=== PATIENT | female | born 1995 | race American Indian/Alaskan Native ===

== ENCOUNTER 2019-11-04 14:40 | Emergency (ER) | payer SELFPAY ==
--- NOTE | 2019-11-04 17:34 | Event Note ---
ED Screening Note ED Screening Note: 24 y/o female presents to ED c/o of cough =, chest pain and hemoptysis with myalgia. The patient was seen in triage for above Labs/imaging ordered to evaluate for a cause of this complaint. Vital signs reviewed, patient awake and alert in NAD. This initial assessment/diagnostic orders/clinical plan/treatment(s) is/are subject to change based on patients health status, clinical progression and re- assessment by fellow clinical providers in the ED. Further treatment and workup at subsequent clinical providers discretion. Patient/guardian urged not to elope from the ED as their condition may be serious if not clinically assessed and managed. Initial orders include:
--- NOTE | 2019-11-04 18:00 | XRay Report ---
CHEST 2 VIEWS INDICATION / CLINICAL INFORMATION: cough and chest pain. COMPARISON: None available. FINDINGS: SUPPORT DEVICES: None. HEART / MEDIASTINUM: No significant abnormality. LUNGS / PLEURA: No significant pulmonary or pleural abnormality. No pneumothorax. ADDITIONAL FINDINGS: No significant additional findings. IMPRESSION: 1. No acute findings. Signer Name: Willard Lowery MD Signed: 11/04/2019 5:56 PM Workstation Name: [id number]
[2019-11-04] MEDS ORDERED: predniSONE 50 MG TAB PO ONE (19:50)
[2019-11-04] MEDS ORDERED: ACETAMINOPHEN 500 MG TAB PO ONE (19:51)
--- NOTE | 2019-11-04 19:56 | Emergency Department Report ---
- General Chief Complaint: Upper Respiratory Infection Stated Complaint: FLU SYM/CHEST PAIN Time Seen by Provider: 11/04/19 17:28 Source: patient Mode of arrival: Ambulatory Limitations: No Limitations - History of Present Illness Initial Comments: 24-year-old female with hx of tobacco use but no significant past medical history presents to the ER today complaining of a one-month history of flulike symptoms. Patient reports productive cough. He states the sputum initially was screaming/yellow but now it's appears to be clearing up. She reports associated body aches, chills, sore throat, rhinorrhea, nasal congestion, chest pain and back pain when she coughs and she reports subjective fever last night for the first time. She states that she has been trying [id number] natural remedies, but last night tried some TheraFlu without much relief of her symptoms. She reports no SOB, wheezing, or any other symptoms at this time. MD Complaint: fever, cough, sore throat, rhinorrhea, nasal congestion -: month(s) (1) - Related Data Previous Rx's Medication Instructions Recorded Last Taken Type Ciprofloxacin HCl [Ciprofloxacin 500 mg PO BID #14 tablet 07/24/16 Unknown Rx TAB] Albuterol INH(or & Nicu Only) 2 puff IH QID PRN #8.5 gram 11/04/19 Unknown Rx [ProAir HFA Inhaler] Amoxicillin/Potassium Clav 1 each PO BID #14 tablet 11/04/19 Unknown Rx [Augmentin 875-125 Tablet] guaiFENesin/CODEINE [Robitussin AC] 5 ml PO Q4HR PRN #120 oral.liqd 11/04/19 Unknown Rx predniSONE [Deltasone] 50 mg PO ONCE #4 tablet 11/04/19 Unknown Rx Allergies Allergy/AdvReac Type Severity Reaction Status Date / Time aspirin Allergy Swelling Verified 11/04/19 14:45 ED Review of Systems ROS: Stated complaint: FLU SYM/CHEST PAIN Other details as noted in HPI Constitutional: chills, fever ENT: throat pain, congestion, other (Rhinorrhea) Cardiovascular: chest pain (with cough) Gastrointestinal: denies: abdominal pain, nausea, vomiting, diarrhea Genitourinary: denies: dysuria, frequency Skin: denies: rash Neurological: denies: headache, weakness ED Past Medical Hx - Past Medical History Previous Medical History?: No - Surgical History Past Surgical History?: No - Social History Smoking Status: Current Every Day Smoker Substance Use Type: None - Medications Home Medications: Home Medications Medication Instructions Recorded Confirmed Last Taken Type Ciprofloxacin HCl [Ciprofloxacin 500 mg PO BID #14 tablet 07/24/16 Unknown Rx TAB] Albuterol INH(or & Nicu Only) 2 puff IH QID PRN #8.5 gram 11/04/19 Unknown Rx [ProAir HFA Inhaler] Amoxicillin/Potassium Clav 1 each PO BID #14 tablet 11/04/19 Unknown Rx [Augmentin 875-125 Tablet] guaiFENesin/CODEINE [Robitussin AC] 5 ml PO Q4HR PRN #120 oral.liqd 11/04/19 Unknown Rx predniSONE [Deltasone] 50 mg PO ONCE #4 tablet 11/04/19 Unknown Rx ED Physical Exam - General Limitations: No Limitations General appearance: alert, in no apparent distress - Head Head exam: Present: atraumatic, normocephalic, normal inspection - Eye Eye exam: Present: normal appearance, PERRL, EOMI Pupils: Present: normal accommodation - ENT ENT exam: Present: normal exam, normal orophraynx, mucous membranes moist, TM's normal bilaterally, other (+right maxillary and left frontal sinus tenderness) - Neck Neck exam: Present: normal inspection, full ROM. Absent: meningismus - Respiratory Respiratory exam: Present: normal lung sounds bilaterally. Absent: respiratory distress, wheezes - Cardiovascular Cardiovascular Exam: Present: regular rate, normal rhythm, normal heart sounds - GI/Abdominal GI/Abdominal exam: Present: soft. Absent: distended, tenderness - Neurological Exam Neurological exam: Present: alert, oriented X3, CN II-XII intact, normal gait - Skin Skin exam: Present: intact ED Course Vital Signs 11/04/19 17:28 Temperature 99 F Pulse Rate 101 H Respiratory 20 Rate Blood Pressure 130/93 O2 Sat by Pulse 100 Oximetry ED Medical Decision Making - Radiology Data Radiology results: report reviewed Patient: ANANDA PADGETT Dona#: [id number] : 1995 Acct:[id number] Age/Sex: 24 / F ADM Date: 11/04/19 Loc: ED Attending Dr: Ordering Physician: DIEGO DOTSON Date of Service: 11/04/19 Procedure(s): XR chest routine 2V Accession Number(s): [id number] cc: DIEGO DOTSON Fluoro Time In Minutes: CHEST 2 VIEWS INDICATION / CLINICAL INFOR MATION: cough and chest pain. COMPARISON: None available. FINDINGS: SUPPORT DEVICES: None. HEART / MEDIASTINUM: No significant abnormality. LUNGS / PLEURA: No significant pulmonary or pleural abnormality. No pneumothorax. ADDITIONAL FINDINGS: No significant additional findings. IMPRESSION: 1. No acute findings. Signer Name: Willard Lowery MD Signed: 11/04/2019 5:56 PM Workstation Name: [id number] Transcribed By: DT Dictated By: Fabian Lowery MD Electronically Authenticated By: Fabian Lowery MD Signed Date/Time: 11/04/191755 DD/ 54 TD/TT: - Medical Decision Making patient presented to ED c/o flu like symptoms/URI symptoms x 1 mth. She reports cp when coughing and subjective fever for the first time last night. She reports no SOB. Patient is currently resting comfortably, no acute pain nor respiratory distress, she is not toxic or ill appearing and VS stable. She has normal Mental Status and she is neurologically intact. CXR reviewed, nothing acute on images. Suspect sinusitis/bronchitis at this time. The history, exam and patient current condition does not demonstrate any signs of clincally significant infectious process such as meningitis, retropharyngeal abscess, epiglottitis, sepsis or any other serious bacterial infection, nor cardiac events nor PE requiring further testing, treatment or admission at this time. The patient's condition is stable and she is appropriate for discharge. Discussed suspected diagnosis and treatment plan with patient. Recommend follow-up with PCP but if she is worse return to the ER. Critical care attestation.: If time is entered above; I have spent that time in minutes in the direct care of this critically ill patient, excluding procedure time. ED Disposition Clinical Impression: Acute bacterial sinusitis, Acute bronchitis Disposition: - TO HOME OR SELFCARE Is pt being admited?: No Does the pt Need Aspirin: No Condition: Stable Instructions: Acute Bronchitis (ED), Acute Bacterial Rhinosinusitis (ED) Prescriptions: Amoxicillin/Potassium Clav [Augmentin 875-125 Tablet] 1 each PO BID #14 tablet predniSONE [Deltasone] 50 mg PO ONCE #4 tablet Albuterol INH(or & Nicu Only) [ProAir HFA Inhaler] 2 puff IH QID PRN #8.5 gram PRN Reason: Shortness Of Breath guaiFENesin/CODEINE [Robitussin AC] 5 ml PO Q4HR PRN #120 oral.liqd PRN Reason: Cough Referrals: PRIMARY CARE, [Primary Care Provider] - 3-5 Days
[2019-11-04 20:37] VITALS: BP 110/71
== END 2019-11-04 20:25 | disposition home or self-care (01) ==
LOC: ED 14:40
DX: J01.80 Other acute sinusitis (principal); B96.89 Other specified bacterial agents as the cause of diseases classified elsewhere; J20.9 Acute bronchitis, unspecified; F17.200 Nicotine dependence, unspecified, uncomplicated; Z79.2 Long term (current) use of antibiotics; Z79.899 Other long term (current) drug therapy; Z88.8 Allergy status to other drugs, medicaments and biological substances
CPT/HCPCS: 71046; 99283; J7512

== ENCOUNTER 2020-05-14 16:36 | Emergency (ER) | payer SELFPAY | END 2020-05-14 17:38 | disposition left against medical advice (07) | LOC: ED 16:36 | DX: R10.9 Unspecified abdominal pain (principal); Z53.21 Procedure and treatment not carried out due to patient leaving prior to being seen by health care provider ==